=== PATIENT | female | born 1970 | race Asian ===

== ENCOUNTER 2018-11-27 22:28 | Inpatient (IN) | payer OTHER ==
[2018-11-28] MEDS: ONDANSETRON 4 MG INJ IV (01:04)
[2018-11-28] MEDS: morphine 2 MG INJ IV (01:04)
[2018-11-28] MEDS: PANTOPRAZOLE 40 MG INJ IV (01:04)
[2018-11-28 01:16] LABS: ADD MAN DIFF? NO
[2018-11-28 01:21] LABS: WHITE BLOOD COUNT 12.9 10^3/ul (4.8-10.8)
[2018-11-28 01:21] LABS: BASOPHIL # 0.1 10^3/ul (0.0-0.1); BASOPHILS % 0.5 % (0.0-2.0); EOSINOPHILS # 0.3 10^3/ul (0.0-0.5); HEMATOCRIT 44.1 % (37.0-47.0); HEMOGLOBIN 14.6 g/dl (12.0-16.0); LYMPHOCYTES # 2.1 10^3/ul (0.8-2.9); MEAN CORPUSCULAR HEMOGLOBIN 30.4 pg (29.0-33.0); MEAN CORPUSCULAR HGB CONC 33.1 g/dl (32.0-37.0); MEAN CORPUSCULAR VOLUME 91.9 fl (82.0-101.0); MEAN PLATELET VOLUME 10.8 fl (7.4-10.4); MONOCYTE # 0.5 10^3/ul (0.3-0.9); MONOCYTES % 4.2 % (0.0-11.0); NEUTROPHIL # 9.9 10^3/ul (1.6-7.5); NEUTROPHILS % 76.9 % (39.0-77.0); PLATELET COUNT 262 10^3/UL (140-415); RED CELL DISTRIBUTION WIDTH 11.8 % (11.5-14.5)
[2018-11-28 01:41] LABS: URINE PH (Dip) POC 6.5 (5.0-8.5)
[2018-11-28 01:41] LABS: URINE BLOOD (Dip) POC Negative (NEGATIVE); URINE KETONES (Dip) POC 1+ (NEGATIVE); URINE LEUKOCYTE EST (Dip) POC Negative (NEGATIVE); URINE NITRITE (Dip) POC Negative (NEGATIVE); URINE TOTAL PROTEIN POC Negative (NEGATIVE)
[2018-11-28 01:43] LABS: ALANINE AMINOTRANSFERASE 39 IU/L (13-69); ALBUMIN 4.6 g/dl (3.3-4.9); ALBUMIN/GLOBULIN RATIO 1.53; ALKALINE PHOSPHATASE 43 IU/L (42-121); ANION GAP 12 (5-13); ASPARTATE AMINO TRANSFERASE 33 IU/L (15-46); BILIRUBIN,INDIRECT 0.1 mg/dl (0-1.1); BILIRUBIN,TOTAL 0.1 mg/dl (0.2-1.3); BLOOD UREA NITROGEN 21 mg/dl (7-20); CALCIUM 11.4 mg/dl (8.4-10.2); CARBON DIOXIDE 34 mmol/L (21-31); CHLORIDE 88 mmol/L (97-110); CREATININE 0.66 mg/dl (0.44-1.00); Estimated GFR > 60 mL/min (>60); GLUCOSE 242 mg/dl (70-220); LIPASE 850 U/L (23-300); POTASSIUM 4.2 mmol/L (3.5-5.1); SODIUM 134 mmol/L (135-144); TOTAL PROTEIN 7.6 g/dl (6.1-8.1)
[2018-11-28 01:45] LABS: AMPHETAMINE/METHAMPHETAMINE Negative (NEGATIVE); BARBITURATES Negative (NEGATIVE); CANNABINOIDS Negative (NEGATIVE); COCAINE Negative (NEGATIVE); OPIATES Negative (NEGATIVE)
[2018-11-28 01:51] LABS: ETHANOL < 10.0 mg/dl (0-0)
[2018-11-28 01:54] LABS: BENZODIAZEPINES Positive (NEGATIVE)
[2018-11-28] MEDS: HYDROmorphONE 0.5 MG/0.5 ML SYG IV (03:20)
[2018-11-28] MEDS: SOD CHLORIDE 0.9% 1,000 ML IV ×5 (03:46→23:21)
[2018-11-28] MEDS ORDERED: ONDANSETRON 4 MG INJ IV (08:30)
[2018-11-28] MEDS ORDERED: HYDROCODONE/APAP (5/325) TAB PO (08:30)
[2018-11-28] MEDS ORDERED: NACL 0.9% 3 ML SYG IV (08:30)
[2018-11-28] MEDS ORDERED: ACETAMINOPHEN 325 MG TAB PO (08:30)
[2018-11-28] MEDS: HYDROmorphONE 1 MG/ML SYG IV ×2 (08:46→12:08)
[2018-11-28] MEDS ORDERED: GLUCOSE GEL 15 GRAM TUBE PO ×2 (09:00)
[2018-11-28] MEDS ORDERED: THIAMINE 200 MG INJ IM (09:00)
[2018-11-28] MEDS ORDERED: GLUCAGON 1 MG INJ IM (09:00)
[2018-11-28] MEDS ORDERED: DEXTROSE 50% 50 ML SYRINGE IV ×2 (09:00)
[2018-11-28] MEDS ORDERED: GLUCOSE GEL 15 GRAM TUBE BUCCAL (09:00)
[2018-11-28] MEDS: INSULIN GLARGINE [LANTus] (100 UNITS/ML) SYG SC (09:53)
[2018-11-28] MEDS: LORAZEPAM 2 MG INJ IV ×3 (11:06→23:15)
[2018-11-28] MEDS: INSULIN ASPART [NOVOLOG] 3 ML PEN SC ×3 (12:00→20:59)
[2018-11-28] MEDS: HYDROmorphONE 2 MG/ML SYG IV ×3 (15:14→21:29)
[2018-11-29] MEDS: DIPHENHYDRAMINE 50 MG INJ IV ×2 (00:15→04:22)
[2018-11-29] MEDS: HYDROmorphONE 2 MG/ML SYG IV ×4 (00:31→09:30)
[2018-11-29] MEDS: ACCU-CHEK XX (02:00)
[2018-11-29] MEDS: SOD CHLORIDE 0.9% 1,000 ML IV ×2 (03:28→06:09)
[2018-11-29] MEDS: PANTOPRAZOLE 40 MG INJ IV (05:15)
[2018-11-29] MEDS: LORAZEPAM 2 MG INJ IV ×2 (05:15→09:57)
[2018-11-29 06:00] LABS: ADD MAN DIFF? NO
[2018-11-29 06:17] LABS: BASOPHIL # 0.1 10^3/ul (0.0-0.1); BASOPHILS % 0.6 % (0.0-2.0); EOSINOPHILS # 0.9 10^3/ul (0.0-0.5); EOSINOPHILS % 10.3 % (0.0-7.0); HEMATOCRIT 37.8 % (37.0-47.0); HEMOGLOBIN 12.3 g/dl (12.0-16.0); LYMPHOCYTES # 4.3 10^3/ul (0.8-2.9); LYMPHOCYTES % 52.4 % (15.0-51.0); MEAN CORPUSCULAR HEMOGLOBIN 31.1 pg (29.0-33.0); MEAN CORPUSCULAR HGB CONC 32.5 g/dl (32.0-37.0); MEAN CORPUSCULAR VOLUME 95.5 fl (82.0-101.0); MEAN PLATELET VOLUME 11.3 fl (7.4-10.4); MONOCYTE # 0.4 10^3/ul (0.3-0.9); MONOCYTES % 5.2 % (0.0-11.0); NEUTROPHIL # 2.6 10^3/ul (1.6-7.5); NEUTROPHILS % 31.4 % (39.0-77.0); PLATELET COUNT 220 10^3/UL (140-415); RED BLOOD COUNT 3.96 10^6/ul (4.20-5.40); RED CELL DISTRIBUTION WIDTH 12.2 % (11.5-14.5)
[2018-11-29 06:17] LABS: WHITE BLOOD COUNT 8.2 10^3/ul (4.8-10.8)
[2018-11-29 06:29] LABS: ALANINE AMINOTRANSFERASE 30 IU/L (13-69); ALBUMIN 3.6 g/dl (3.3-4.9); ALKALINE PHOSPHATASE 32 IU/L (42-121); ANION GAP 5 (5-13); ASPARTATE AMINO TRANSFERASE 28 IU/L (15-46); BILIRUBIN,INDIRECT 0.1 mg/dl (0-1.1); BILIRUBIN,TOTAL 0.1 mg/dl (0.2-1.3); BLOOD UREA NITROGEN 12 mg/dl (7-20); CALCIUM 8.1 mg/dl (8.4-10.2); CARBON DIOXIDE 29 mmol/L (21-31); CHLORIDE 103 mmol/L (97-110); CHOL/HDL RATIO 2.9 RATIO; CHOLESTEROL 161 mg/dl (100-200); CREATININE 0.61 mg/dl (0.44-1.00); Estimated GFR > 60 mL/min (>60); GLUCOSE 123 mg/dl (70-220); HDL CHOLESTEROL 55 mg/dl (34-88); LDL CHOLESTEROL,CALCULATED 65 mg/dl; MAGNESIUM 1.7 mg/dl (1.7-2.5); POTASSIUM 3.9 mmol/L (3.5-5.1); SODIUM 137 mmol/L (135-144); TRIGLYCERIDES 207 mg/dl (0-149)
[2018-11-29 06:30] LABS: HEMOGLOBIN A1C 6.3 % (0-5.9)
[2018-11-29 07:06] LABS: LIPASE 317 U/L (23-300)
[2018-11-29] MEDS: INSULIN ASPART [NOVOLOG] 3 ML PEN SC (08:00)
[2018-11-29] MEDS: THIAMINE 100 MG TAB PO (08:41)
[2018-11-29] MEDS: INSULIN GLARGINE [LANTus] (100 UNITS/ML) SYG SC (08:43)
[2018-11-29] MEDS ORDERED: CASPOFUNGIN 50 MG in SOD CHLORIDE 0.9% 250 ML IVPB (09:30)
== END 2018-11-29 10:15 | disposition home or self-care (01) | DRG 440 ==
LOC: E/R 22:28 → PP2 11-28 04:48
DX: K85.90 Acute pancreatitis without necrosis or infection, unspecified (principal); E11.9 Type 2 diabetes mellitus without complications; K59.09 Other constipation; G89.4 Chronic pain syndrome; E78.5 Hyperlipidemia, unspecified; E03.9 Hypothyroidism, unspecified; F41.9 Anxiety disorder, unspecified; F10.10 Alcohol abuse, uncomplicated; M79.7 Fibromyalgia; F32.9 Major depressive disorder, single episode, unspecified; Z79.4 Long term (current) use of insulin; D72.829 Elevated white blood cell count, unspecified
CPT/HCPCS: 36415; 71045; 76705; 80053; 80061; 80307; 81003; 81025; 82962; 83036; 83690; 83735; 84100; 84443; 85025; 96361; 96374; 96375; 99285-25

== ENCOUNTER 2019-07-18 19:47 | Inpatient (IN) | payer OTHER ==
[2019-07-18] MEDS: LIDOCAINE/MYLANTA 40 ML BTL PO (21:00)
[2019-07-18] MEDS: LACTATED RINGER'S 1,000 ML IV (21:00)
[2019-07-18] MEDS: ONDANSETRON 4 MG INJ IV (21:00)
[2019-07-18] MEDS: KETOROLAC 15 MG INJ IV (21:00)
[2019-07-18] MEDS: BELLADONNA/PHENOBARBITAL TAB PO (21:00)
[2019-07-18] MEDS: LORAZEPAM 2 MG INJ IV (21:00)
[2019-07-18 21:15] LABS: ADD MAN DIFF? NO
[2019-07-18 21:17] LABS: WHITE BLOOD COUNT 14.2 10^3/ul (4.8-10.8)
[2019-07-18 21:17] LABS: BASOPHIL # 0.1 10^3/ul (0.0-0.1); BASOPHILS % 0.4 % (0.0-2.0); EOSINOPHILS # 0.2 10^3/ul (0.0-0.5); EOSINOPHILS % 1.3 % (0.0-7.0); HEMATOCRIT 44.8 % (37.0-47.0); HEMOGLOBIN 14.8 g/dl (12.0-16.0); LYMPHOCYTES # 3.1 10^3/ul (0.8-2.9); LYMPHOCYTES % 21.6 % (15.0-51.0); MEAN CORPUSCULAR VOLUME 93.9 fl (82.0-101.0); MEAN PLATELET VOLUME 11.1 fl (7.4-10.4); MONOCYTE # 0.5 10^3/ul (0.3-0.9); MONOCYTES % 3.5 % (0.0-11.0); NEUTROPHIL # 10.3 10^3/ul (1.6-7.5); NEUTROPHILS % 72.6 % (39.0-77.0); PLATELET COUNT 257 10^3/UL (140-415); RED BLOOD COUNT 4.77 10^6/ul (4.20-5.40); RED CELL DISTRIBUTION WIDTH 12.4 % (11.5-14.5)
[2019-07-18 21:28] LABS: ALANINE AMINOTRANSFERASE 37 IU/L (13-69); ALBUMIN 4.5 g/dl (3.3-4.9); ALBUMIN/GLOBULIN RATIO 1.73; ALKALINE PHOSPHATASE 57 IU/L (42-121); ANION GAP 13 (5-13); ASPARTATE AMINO TRANSFERASE 35 IU/L (15-46); BILIRUBIN,INDIRECT 0.3 mg/dl (0-1.1); BILIRUBIN,TOTAL 0.3 mg/dl (0.2-1.3); BLOOD UREA NITROGEN 13 mg/dl (7-20); CALCIUM 9.1 mg/dl (8.4-10.2); CARBON DIOXIDE 23 mmol/L (21-31); CHLORIDE 100 mmol/L (97-110); CREATININE 0.69 mg/dl (0.44-1.00); Estimated GFR > 60 mL/min (>60); GLUCOSE 184 mg/dl (70-220); LIPASE 1396 U/L (23-300); POTASSIUM 3.2 mmol/L (3.5-5.1); SODIUM 136 mmol/L (135-144); TOTAL PROTEIN 7.1 g/dl (6.1-8.1)
[2019-07-18] MEDS: HYDROCODONE/APAP (5/325) TAB PO (21:32)
[2019-07-18 21:37] LABS: INR 0.85; PARTIAL THROMBOPLASTIN TIME 21.9 Sec (23.0-35.0); PROTIME 11.7 Sec (11.9-14.9); PT RATIO 0.9
[2019-07-18 21:38] LABS: TROPONIN-I < 0.012 ng/ml (0.000-0.120)
[2019-07-18] MEDS: HYDROmorphONE 1 MG/ML SYG IV ×2 (21:41→22:52)
[2019-07-18] MEDS: SOD CHLORIDE 0.9% 1,000 ML IV (22:14)
[2019-07-19] MEDS: ONDANSETRON 4 MG INJ IV (00:55)
[2019-07-19] MEDS: morphine 2 MG INJ IV (00:55)
[2019-07-19] MEDS: DEXTROSE 5%-0.9% NACL 1,000 ML IV ×2 (00:55→10:47)
[2019-07-19] MEDS: HYDROmorphONE 0.5 MG/0.5 ML SYG IV ×5 (02:44→14:04)
[2019-07-19 11:02] LABS: TROPONIN-I < 0.012 ng/ml (0.000-0.120)
[2019-07-19] MEDS: POTASSIUM CHLORIDE 100 ML IVPB ×2 (11:16→13:08)
[2019-07-19 13:07] LABS: PROCALCITONIN 0.06 ng/mL (0.00-0.10)
[2019-07-19] MEDS: LACTATED RINGER'S 1,000 ML IV ×2 (13:09→20:46)
[2019-07-19] MEDS ORDERED: GLUCAGON 1 MG INJ IM (16:30)
[2019-07-19] MEDS ORDERED: GLUCOSE GEL 15 GRAM TUBE PO ×2 (16:30)
[2019-07-19] MEDS ORDERED: DEXTROSE 50% 50 ML SYRINGE IV ×2 (16:30)
[2019-07-19] MEDS ORDERED: GLUCOSE GEL 15 GRAM TUBE BUCCAL (16:30)
[2019-07-19] MEDS: HYDROmorphONE 2 MG/ML SYG IV ×3 (16:50→23:07)
[2019-07-19] MEDS: INSULIN ASPART [NOVOLOG] 3 ML PEN SC ×2 (18:35→20:43)
[2019-07-19] MEDS: ZOLPIDEM 5 MG TAB PO (23:52)
[2019-07-20] MEDS: INSULIN ASPART [NOVOLOG] 3 ML PEN SC ×6 (01:00→20:37)
[2019-07-20] MEDS: ACCU-CHEK XX (02:00)
[2019-07-20] MEDS: HYDROmorphONE 2 MG/ML SYG IV ×8 (02:19→23:42)
[2019-07-20] MEDS: LACTATED RINGER'S 1,000 ML IV ×3 (05:31→19:40)
[2019-07-20 05:54] LABS: ADD MAN DIFF? NO
[2019-07-20 06:22] LABS: AMYLASE 893 U/L (11-123)
[2019-07-20 06:22] LABS: ANION GAP 7 (5-13); BLOOD UREA NITROGEN 10 mg/dl (7-20); CALCIUM 8.4 mg/dl (8.4-10.2); CARBON DIOXIDE 25 mmol/L (21-31); CHLORIDE 104 mmol/L (97-110); CHOL/HDL RATIO 3.8 RATIO; CHOLESTEROL 198 mg/dl (100-200); CREATININE 0.63 mg/dl (0.44-1.00); Estimated GFR > 60 mL/min (>60); GLUCOSE 104 mg/dl (70-220); HDL CHOLESTEROL 52 mg/dl (34-88); LDL CHOLESTEROL,CALCULATED 99 mg/dl; MAGNESIUM 2.3 mg/dl (1.7-2.5); PHOSPHORUS 1.5 mg/dl (2.5-4.9); POTASSIUM 5.1 mmol/L (3.5-5.1); SODIUM 136 mmol/L (135-144); TRIGLYCERIDES 237 mg/dl (0-149)
[2019-07-20 06:39] LABS: WHITE BLOOD COUNT 9.8 10^3/ul (4.8-10.8)
[2019-07-20 06:39] LABS: BASOPHIL # 0.1 10^3/ul (0.0-0.1); BASOPHILS % 0.6 % (0.0-2.0); EOSINOPHILS # 0.7 10^3/ul (0.0-0.5); EOSINOPHILS % 7.3 % (0.0-7.0); HEMATOCRIT 41.3 % (37.0-47.0); HEMOGLOBIN 13.3 g/dl (12.0-16.0); LYMPHOCYTES # 2.2 10^3/ul (0.8-2.9); MEAN CORPUSCULAR HEMOGLOBIN 31.1 pg (29.0-33.0); MEAN CORPUSCULAR HGB CONC 32.2 g/dl (32.0-37.0); MEAN CORPUSCULAR VOLUME 96.7 fl (82.0-101.0); MEAN PLATELET VOLUME 11.4 fl (7.4-10.4); MONOCYTE # 0.5 10^3/ul (0.3-0.9); MONOCYTES % 5.5 % (0.0-11.0); NEUTROPHIL # 6.3 10^3/ul (1.6-7.5); NEUTROPHILS % 64.3 % (39.0-77.0); PLATELET COUNT 212 10^3/UL (140-415); RED BLOOD COUNT 4.27 10^6/ul (4.20-5.40); RED CELL DISTRIBUTION WIDTH 12.8 % (11.5-14.5)
[2019-07-20 08:19] LABS: LIPASE 12258 U/L (23-300)
[2019-07-20] MEDS: VENLAFAXINE 75 MG TABLET PO (08:52)
[2019-07-20] MEDS: ENOXAPARIN 40 MG/0.4 ML SYG SC (08:54)
[2019-07-20] MEDS: LORAZEPAM 2 MG INJ IV (10:47)
[2019-07-20] MEDS: SODIUM PHOSPHATE 15 MMOL in SOD CHLORIDE 0.9% 250 ML IVPB (11:33)
[2019-07-20] MEDS: GEMFIBROZIL 600 MG TAB PO ×2 (11:33→20:38)
[2019-07-20] MEDS: METHADONE (1 MG/ML 5 ML PO UD SYG) PO (12:49)
[2019-07-20] MEDS: ZOLPIDEM 5 MG TAB PO (22:31)
[2019-07-21] MEDS: INSULIN ASPART [NOVOLOG] 3 ML PEN SC ×6 (01:00→21:00)
[2019-07-21] MEDS: ACCU-CHEK XX (02:00)
[2019-07-21] MEDS: HYDROmorphONE 2 MG/ML SYG IV ×7 (02:44→22:56)
[2019-07-21] MEDS: LACTATED RINGER'S 1,000 ML IV ×3 (02:47→16:26)
[2019-07-21 05:36] LABS: ADD MAN DIFF? NO
[2019-07-21 05:43] LABS: BASOPHIL # 0.1 10^3/ul (0.0-0.1); BASOPHILS % 0.6 % (0.0-2.0); EOSINOPHILS # 0.6 10^3/ul (0.0-0.5); EOSINOPHILS % 6.6 % (0.0-7.0); HEMATOCRIT 38.6 % (37.0-47.0); HEMOGLOBIN 12.4 g/dl (12.0-16.0); LYMPHOCYTES # 2.1 10^3/ul (0.8-2.9); LYMPHOCYTES % 21.8 % (15.0-51.0); MEAN CORPUSCULAR HEMOGLOBIN 31.2 pg (29.0-33.0); MEAN CORPUSCULAR HGB CONC 32.1 g/dl (32.0-37.0); MEAN CORPUSCULAR VOLUME 97.2 fl (82.0-101.0); MEAN PLATELET VOLUME 11.3 fl (7.4-10.4); MONOCYTE # 0.7 10^3/ul (0.3-0.9); NEUTROPHIL # 6.2 10^3/ul (1.6-7.5); NEUTROPHILS % 63.7 % (39.0-77.0); PLATELET COUNT 214 10^3/UL (140-415); RED BLOOD COUNT 3.97 10^6/ul (4.20-5.40); RED CELL DISTRIBUTION WIDTH 12.9 % (11.5-14.5)
[2019-07-21 05:43] LABS: WHITE BLOOD COUNT 9.7 10^3/ul (4.8-10.8)
[2019-07-21 06:00] LABS: ALANINE AMINOTRANSFERASE 29 IU/L (13-69); ALBUMIN 3.7 g/dl (3.3-4.9); ALKALINE PHOSPHATASE 46 IU/L (42-121); ASPARTATE AMINO TRANSFERASE 37 IU/L (15-46); BILIRUBIN,INDIRECT 0.4 mg/dl (0-1.1); BILIRUBIN,TOTAL 0.4 mg/dl (0.2-1.3); TOTAL PROTEIN 6.1 g/dl (6.1-8.1)
[2019-07-21 06:06] LABS: ANION GAP 9 (5-13); BLOOD UREA NITROGEN 9 mg/dl (7-20); CALCIUM 8.7 mg/dl (8.4-10.2); CARBON DIOXIDE 23 mmol/L (21-31); CHLORIDE 105 mmol/L (97-110); CREATININE 0.53 mg/dl (0.44-1.00); Estimated GFR > 60 mL/min (>60); GLUCOSE 84 mg/dl (70-220); PHOSPHORUS 2.1 mg/dl (2.5-4.9); POTASSIUM 4.4 mmol/L (3.5-5.1); SODIUM 137 mmol/L (135-144)
[2019-07-21 06:10] LABS: AMYLASE 426 U/L (11-123)
[2019-07-21] MEDS: DIPHENHYDRAMINE 25 MG CAP PO ×2 (06:46→21:12)
[2019-07-21 06:56] LABS: LIPASE 5256 U/L (23-300)
[2019-07-21] MEDS: GEMFIBROZIL 600 MG TAB PO ×2 (08:57→19:41)
[2019-07-21] MEDS: VENLAFAXINE 75 MG TABLET PO (08:57)
[2019-07-21] MEDS: ENOXAPARIN 40 MG/0.4 ML SYG SC (09:02)
[2019-07-21] MEDS: METHADONE (1 MG/ML 5 ML PO UD SYG) PO (10:30)
[2019-07-21] MEDS: POTASSIUM PHOSPHATE 20 MEQ in SOD CHLORIDE 0.9% 250 ML IVPB (11:15)
[2019-07-21 19:41] LABS: AMYLASE 453 U/L (11-123)
[2019-07-21 20:21] LABS: LIPASE 5363 U/L (23-300)
[2019-07-21] MEDS: ZOLPIDEM 5 MG TAB PO (21:12)
[2019-07-22] MEDS: INSULIN ASPART [NOVOLOG] 3 ML PEN SC ×6 (00:47→20:22)
[2019-07-22] MEDS: ACCU-CHEK XX (02:00)
[2019-07-22] MEDS: HYDROmorphONE 2 MG/ML SYG IV ×6 (02:22→20:18)
[2019-07-22] MEDS: LACTATED RINGER'S 1,000 ML IV ×3 (02:22→17:42)
[2019-07-22 05:19] LABS: ADD MAN DIFF? NO
[2019-07-22 05:21] LABS: BASOPHIL # 0.1 10^3/ul (0.0-0.1); BASOPHILS % 0.7 % (0.0-2.0); EOSINOPHILS # 0.5 10^3/ul (0.0-0.5); EOSINOPHILS % 5.9 % (0.0-7.0); HEMOGLOBIN 12.9 g/dl (12.0-16.0); LYMPHOCYTES # 2.6 10^3/ul (0.8-2.9); MEAN CORPUSCULAR HEMOGLOBIN 30.8 pg (29.0-33.0); MEAN CORPUSCULAR HGB CONC 32.3 g/dl (32.0-37.0); MEAN CORPUSCULAR VOLUME 95.5 fl (82.0-101.0); MEAN PLATELET VOLUME 10.8 fl (7.4-10.4); MONOCYTE # 0.8 10^3/ul (0.3-0.9); MONOCYTES % 9.3 % (0.0-11.0); NEUTROPHIL # 4.9 10^3/ul (1.6-7.5); NEUTROPHILS % 54.9 % (39.0-77.0); PLATELET COUNT 228 10^3/UL (140-415); RED BLOOD COUNT 4.19 10^6/ul (4.20-5.40); RED CELL DISTRIBUTION WIDTH 12.6 % (11.5-14.5)
[2019-07-22 05:21] LABS: WHITE BLOOD COUNT 8.9 10^3/ul (4.8-10.8)
[2019-07-22 05:54] LABS: ANION GAP 12 (5-13); BLOOD UREA NITROGEN 8 mg/dl (7-20); CARBON DIOXIDE 26 mmol/L (21-31); CHLORIDE 100 mmol/L (97-110); CREATININE 0.57 mg/dl (0.44-1.00); GLUCOSE 113 mg/dl (70-220); SODIUM 138 mmol/L (135-144)
[2019-07-22 05:55] LABS: CALCIUM 9.3 mg/dl (8.4-10.2); Estimated GFR > 60 mL/min (>60); MAGNESIUM 1.8 mg/dl (1.7-2.5); PHOSPHORUS 3.2 mg/dl (2.5-4.9)
[2019-07-22] MEDS: GEMFIBROZIL 600 MG TAB PO ×2 (09:00→20:23)
[2019-07-22] MEDS: METHADONE (1 MG/ML 5 ML PO UD SYG) PO (09:00)
[2019-07-22 09:05] LABS: AMYLASE 223 U/L (11-123)
[2019-07-22 09:17] LABS: LIPASE 2239 U/L (23-300)
[2019-07-22] MEDS: VENLAFAXINE 75 MG TABLET PO (09:52)
[2019-07-22] MEDS: ENOXAPARIN 40 MG/0.4 ML SYG SC (09:54)
[2019-07-22] MEDS: ZOLPIDEM 5 MG TAB PO (22:08)
[2019-07-23] MEDS: HYDROmorphONE 2 MG/ML SYG IV ×8 (00:11→22:08)
[2019-07-23] MEDS: LACTATED RINGER'S 1,000 ML IV ×4 (00:11→22:36)
[2019-07-23] MEDS: ACCU-CHEK XX (02:00)
[2019-07-23 06:36] LABS: AMYLASE 147 U/L (11-123)
[2019-07-23 06:36] LABS: LIPASE 1802 U/L (23-300)
[2019-07-23] MEDS: ENOXAPARIN 40 MG/0.4 ML SYG SC (08:10)
[2019-07-23] MEDS: INSULIN ASPART [NOVOLOG] 3 ML PEN SC ×4 (08:10→21:31)
[2019-07-23] MEDS: VENLAFAXINE 75 MG TABLET PO (08:10)
[2019-07-23] MEDS: GEMFIBROZIL 600 MG TAB PO ×2 (08:11→21:00)
[2019-07-23] MEDS: METHADONE (1 MG/ML 5 ML PO UD SYG) PO (08:11)
[2019-07-23] MEDS: LORAZEPAM 2 MG INJ IV ×2 (14:24→17:58)
[2019-07-23] MEDS: DIPHENHYDRAMINE 25 MG CAP PO (23:13)
[2019-07-24] MEDS: ZOLPIDEM 5 MG TAB PO (00:16)
[2019-07-24] MEDS: HYDROmorphONE 2 MG/ML SYG IV ×5 (01:08→15:27)
[2019-07-24] MEDS: ACCU-CHEK XX (02:55)
[2019-07-24 07:20] LABS: ADD MAN DIFF? NO
[2019-07-24 07:28] LABS: BASOPHIL # 0.1 10^3/ul (0.0-0.1); BASOPHILS % 0.8 % (0.0-2.0); EOSINOPHILS # 0.5 10^3/ul (0.0-0.5); EOSINOPHILS % 6.1 % (0.0-7.0); HEMATOCRIT 46.1 % (37.0-47.0); HEMOGLOBIN 15.1 g/dl (12.0-16.0); LYMPHOCYTES # 3.4 10^3/ul (0.8-2.9); LYMPHOCYTES % 40.6 % (15.0-51.0); MEAN CORPUSCULAR HEMOGLOBIN 30.8 pg (29.0-33.0); MEAN CORPUSCULAR HGB CONC 32.8 g/dl (32.0-37.0); MEAN CORPUSCULAR VOLUME 93.9 fl (82.0-101.0); MONOCYTE # 0.9 10^3/ul (0.3-0.9); MONOCYTES % 10.4 % (0.0-11.0); NEUTROPHIL # 3.5 10^3/ul (1.6-7.5); NEUTROPHILS % 41.6 % (39.0-77.0); PLATELET COUNT 290 10^3/UL (140-415); RED BLOOD COUNT 4.91 10^6/ul (4.20-5.40)
[2019-07-24 07:28] LABS: WHITE BLOOD COUNT 8.4 10^3/ul (4.8-10.8)
[2019-07-24 07:51] LABS: ANION GAP 11 (5-13); BLOOD UREA NITROGEN 10 mg/dl (7-20); CALCIUM 9.8 mg/dl (8.4-10.2); CARBON DIOXIDE 34 mmol/L (21-31); CHLORIDE 94 mmol/L (97-110); CREATININE 0.55 mg/dl (0.44-1.00); Estimated GFR > 60 mL/min (>60); GLUCOSE 181 mg/dl (70-220); MAGNESIUM 1.6 mg/dl (1.7-2.5); POTASSIUM 3.4 mmol/L (3.5-5.1); SODIUM 139 mmol/L (135-144)
[2019-07-24] MEDS: LORAZEPAM 2 MG INJ IV ×2 (07:56→14:14)
[2019-07-24] MEDS: VENLAFAXINE 75 MG TABLET PO (08:05)
[2019-07-24] MEDS: AMLODIPINE 5 MG TAB PO (08:34)
[2019-07-24] MEDS: INSULIN ASPART [NOVOLOG] 3 ML PEN SC ×2 (08:35→12:28)
[2019-07-24] MEDS: ENOXAPARIN 40 MG/0.4 ML SYG SC (08:36)
[2019-07-24] MEDS: GEMFIBROZIL 600 MG TAB PO (08:39)
[2019-07-24] MEDS: METHADONE (1 MG/ML 5 ML PO UD SYG) PO (08:40)
[2019-07-24] MEDS ORDERED: AMLODIPINE 5 MG TAB PO (09:00)
[2019-07-24] MEDS: LACTATED RINGER'S 1,000 ML IV (09:25)
[2019-07-24] MEDS: POTASSIUM CHLORIDE (SR) 20 MEQ TAB PO (10:42)
[2019-07-24] MEDS: MAGNESIUM SULFATE 2 GM/50 ML 50 ML IVPB (11:20)
== END 2019-07-24 17:00 | disposition home or self-care (01) | DRG 439 ==
LOC: 2NE 23:56 → E/R 19:47
DX: K85.20 Alcohol induced acute pancreatitis without necrosis or infection (principal); R65.10 Systemic inflammatory response syndrome (SIRS) of non-infectious origin without acute organ dysfunction; E11.8 Type 2 diabetes mellitus with unspecified complications; G89.4 Chronic pain syndrome; F10.10 Alcohol abuse, uncomplicated; F41.9 Anxiety disorder, unspecified; F32.9 Major depressive disorder, single episode, unspecified; E03.9 Hypothyroidism, unspecified; I10 Essential (primary) hypertension
CPT/HCPCS: 36415; 71045; 74176; 74181; 80048; 80053; 80061; 80076; 80307; 82150; 82962; 83690; 83735; 84100; 84145; 84484; 84703; 85025; 85610; 85730; 93005; 96374; 96375; 99285-25